=== PATIENT | male | born 1950 | race Caucasian/White ===

== ENCOUNTER 2022-11-19 14:48 | Inpatient (IN) | payer OTHER ==
--- NOTE | 2022-11-19 15:17 | RAD REPORT ---
EXAM DESCRIPTION: Rachel Single View11/19/2022 3:03 pm CLINICAL HISTORY: Alteration of consciousness COMPARISON: 2009 FINDINGS: The lungs appear clear of acute infiltrate. The heart is normal size IMPRESSION: No acute abnormalities displayed
[2022-11-19 15:33] LABS: Absolute Lymphocytes (CBC) 1.3 K/uL (0.7-4.9); Hematocrit 59.4 % (39.6-49.0); Lymphocytes % 9.7 % (15.3-44.8); MCV 92.7 fL (80-100); MPV 8.8 fL (7.6-11.3)
[2022-11-19 15:49] LABS: Albumin 3.5 g/dL (3.4-5.0); Bilirubin Direct 0.4 mg/dL (0-0.2); Bilirubin Total 0.9 mg/dL (0.2-1.0); Potassium 4.5 mmol/L (3.5-5.1); Protein, Total 7.8 g/dL (6.4-8.2)
[2022-11-19] MEDS ORDERED: CEFTRIAXONE 1000 MG/VIAL ONE (15:57)
[2022-11-19] MEDS ORDERED: NA CHLORIDE 0.9% 50 ML ONE ×2 (15:57→16:02)
[2022-11-19] MEDS ORDERED: NA CHLORIDE 0.9% 1,000 ML ONE ×2 (15:57→17:37)
[2022-11-19] MEDS ORDERED: NA CHLORIDE 0.9% 250 ML ONE (15:57)
[2022-11-19] MEDS ORDERED: VANCOMYCIN 1 GM/VIAL ONE ×2 (15:57→16:02)
[2022-11-19 16:07] LABS: Protime INR 1.06
--- NOTE | 2022-11-19 16:17 | RAD REPORT ---
EXAM DESCRIPTION: CT - Head C Spine Cap Wo Con - 11/19/2022 3:47 pm CLINICAL HISTORY: Head and neck injury with chest and abdominal pain status post fall TECHNIQUE: Computed axial tomography of head, neck, chest, abdomen and pelvis obtained. IV and oral contrast not requested. Coronal and sagittal reconstruction performed. All CT scans are performed using dose optimization technique as appropriate and may include automated exposure control or mA/KV adjustment according to patient size. COMPARISON: 2016 FINDINGS: An intracranial bleed is not seen. A 6.5 centimeter infarct right occipital lobe The ventricles are normal in caliber. An extra-axial fluid collection is not noted. . Fluid within the sinuses/mastoids is not seen. A cervical fracture is not seen. No dislocation is noted. The evaluation of mediastinum, barbara, vessels, solid organs and bowel are limited secondary to the lac k of contrast administration. A mediastinal hematoma is not noted. A pleural effusion is not seen. A lung contusion is not present. The liver,spleen, pancreas, adrenals,kidneys and bladder do not demonstrate an acute traumatic injury Penny catheter within the bladder IMPRESSION: 6.5 centimeter acute infarct right occipital lobe No acute traumatic abnormality involving the chest/abdomen/pelvis.
[2022-11-19 16:45] LABS: Potassium 4.5 mmol/L (3.5-5.1)
[2022-11-19 16:46] LABS: Albumin 3.5 g/dL (3.4-5.0); Bilirubin Total 0.9 mg/dL (0.2-1.0); Protein, Total 7.8 g/dL (6.4-8.2)
[2022-11-19 17:26] LABS: SARS-COV-2 RT PCR NEGATIVE (NEGATIVE)
[2022-11-19] MEDS ORDERED: INSULIN -REGULAR HUMAN 100 UNIT in NA CHLORIDE 0.9% 100 ML IV SCH (17:45)
--- NOTE | 2022-11-19 17:54 | ER ---
Nurse's Notes [facility] Name: Abelardo Campo Age: 72 yrs Sex: Male : 1950 Arrival Date: 11/19/2022 Time: 14:51 Bed 3 Private MD: Diagnosis: Altered mental status, right occipital lobe infarct, DKA, acute renal failure Presentation: 11/19 14:51 Chief complaint: EMS states: Family had not seen patient in 3 days, so called 911 for welfare check. Pt was found soiled with urine on the floor. No obvious sign of injury. Pt was able to tell EMS on scene his name, but has not said anything since then. Coronavirus screen: Client denies travel out of the [place] in the last 14 days. Ebola Screen: Patient denies exposure to infectious person. Patient denies travel to an Ebola-affected area in the 21 days before illness onset. Initial Sepsis Screen: Does the patient meet any 2 criteria? Altered Mental Status. Does the patient have a suspected source of infection? No. Patient's initial sepsis screen is negative. Risk Assessment: Do you want to hurt yourself or someone else? Patient reports no desire to harm self or others. Onset of symptoms is unknown. Care prior to arrival: IV initiated. 20 GA, in the right antecubital area, Glucose check: 425. 14:51 Method Of Arrival: EMS: [facility] 14:51 Acuity: SIMRAN 2 ss Historical: - Allergies: 14:55 Unable to obtain; ss - Home Meds: 14:55 Unable to obtain [Active]; ss - PMHx: 14:55 CAD; carrotid blockage; Diabetes - IDDM; High Cholesterol; Hypertension; Myocardial ss infarction; - PSHx: 14:55 Unable to Obtain; ss - Immunization history:: Adult Immunizations unknown. - Social history:: Smoking status: unknown. Screenin:45 [facility] ED Fall Risk Assessment (Adult) History of falling in the last 3 months, ph including since admission Yes- single mechanical fall (1 pt) Confusion or Disorientation Yes (5 pts) Intoxicated or Sedated No (0 pts) Impaired Gait Yes (1 pt) Mobility Assist Device Used No (0 pt) Altered Elimination No (0 pt) Score/Fall Risk Level 3 or more points = High Risk Oriented to surroundings, Maintained a safe environment, Hourly rounding (assess needs \T\ fall precautionary measures) done, Activated bed/chair alarm. Abuse screen: Denies threats or abuse. Denies injuries from another. Nutritional screening: No deficits noted. Tuberculosis screening: No symptoms or risk factors identified. 17:30 Patient has been NPO before screening. The patient is not alert, or is unable to follow ph commands. Bedside swallow screening discontinued. Patient kept NPO until cleared by Speech Therapy or Physician. pt aphasic The patient is exhibiting difficulty speaking. Provider notified of indication for Speech Therapy consult. The patient does not exhibit difficulty understanding words. The patient is able to swallow own secretions with no drooling or need for suction. The patient failed the bedside swallow screening. The patient will be kept NPO until cleared by Speech Therapy or Physician. Provider notified of bedside swallow screening results: Jacob Madrigal MD. Assessment: 15:15 Reassessment: code sepsis called overhead. ss 15:16 Reassessment: Brother in law at bedside. States unknown downtime for patient. ss 15:30 General: Appears in no apparent distress. Behavior is listless, quiet. Pain: Unable to ph use pain scale. Patient is disoriented. Neuro: Level of Consciousness is awake, confused, Oriented to person, Speech absent. Pupils are PERRLA. Cardiovascular: Capillary refill is sluggish in bilateral fingers. Respiratory: Airway is patent Respiratory effort is even, unlabored. GI: No signs and/or symptoms were reported involving the gastrointestinal system. Derm: Skin is pink, warm \T\ dry. 17:30 Reassessment: Patient appears in no apparent distress at this time. Patient and/or ph family updated on plan of care and expected duration. Pain level reassessed. Pt resting w/ eyes closed, will occasionally open both eyes wide, attempt to sit up and look around but remains confused, appears to recognize family at bedside but is not speaking. 18:30 Reassessment: Patient appears in no apparent distress at this time. Patient and/or ph family updated on plan of care and expected duration. Pain level reassessed. Pt resting quietly w/ eyes closed, VSS. 20:06 General: current FS 293. maintain current insulin rate per protocol. lg3 20:32 General: Appears in no apparent distress. unkempt, Behavior is listless, quiet. Pain: lg3 Unable to use pain scale. Patient is disoriented. Neuro: Level of Consciousness is listless. Cardiovascular:. Respiratory: Airway is patent Trachea midline Respiratory effort is even, unlabored, Respiratory pattern is regular, symmetrical. GI: No deficits noted. Abdomen is flat, non-distended. : No deficits noted. criticore horn in place. EENT: No deficits noted. Derm: Skin is intact, Skin is dry, Skin is normal. Musculoskeletal:. 21:18 General: current FS 261. maintain current insulin rate per protocol . lg3 22:02 General: current FS 177. decrease insulin to 1/2 of current rate per protocol. rate lg3 lowered to 2.5mg/hr. Vital Signs: 14:51 BP 136 / 86; Pulse 88; Resp 18; Temp 94(A); Pulse Ox 94% on R/A; ss 15:24 Temp 94.5(C); ss 15:46 Weight 81.65 kg; ph 16:00 BP 134 / 86; Pulse 89; Resp 18; Pulse Ox 98% on R/A; ph 17:28 BP 164 / 76; Pulse 82; Resp 18; Temp 96.4(C); Pulse Ox 100% on R/A; ph 18:20 BP 171 / 75; Pulse 81; Resp 18; Temp 96.5(C); Pulse Ox 100% on R/A; ph 20:32 BP 125 / 72; Pulse 86; Resp 20; Temp 98.3(C); Pulse Ox 100% on R/A; lg3 NIH Stroke Scale Scores: 16:30 NIHSS Score: 13 ph ED Course: 14:51 Patient arrived in ED. ss 14:51 Jacob Madrigal MD is Attending Physician. kdr 14:53 Munira Kathleen, [place] is Primary Nurse. eh3 14:55 Triage completed. ss 14:55 Arm band placed on right wrist. ss 15:08 XRAY Chest (1 view) In Process Unspecified. EDMS 15:16 Horn cath inserted, using sterile technique, 16 Fr., by worship leader, balloon inflated, to ss gravity drainage, other Criticore horn. 15:45 Patient has correct armband on for positive identification. Placed in gown. Bed in low ph position. Call light in reach. Side rails up X2. Client placed on continuous cardiac and pulse oximetry monitoring. NIBP monitoring applied. 15:49 CT Traumagram (Head C Spine CAP wo con) In Process Unspecified. EDMS 16:00 Maintain EMS IV. Dressing intact. Good blood return noted. Site clean \T\ dry. Gauge \T\ ph site: 20 RAC. 16:19 EKG done, by ED staff, reviewed by Jacob Madrigal MD. em1 16:25 Inserted saline lock: 22 gauge in left antecubital area, using aseptic technique. Blood ph collected. 17:52 Maicol Bonilla MD is Hospitalizing Provider. kdr 18:06 No provider procedures requiring assistance completed. Patient admitted, IV remains in ph place. 19:32 Lactate w/ 2H reflex if indic. Sent. ph 20:32 Client placed on continuous cardiac and pulse oximetry monitoring. NIBP monitoring lg3 applied. telemetry monitor on. Administered Medications: 16:35 Drug: NS 0.9% (30 ml/kg) 30 ml/kg Route: IV; Rate: bolus; Site: left antecubital; ph 18:20 Follow up: Response: No adverse reaction; IV Status: Completed infusion; IV Intake: ph 2000ml 16:35 Drug: Rocephin - (cefTRIAXone) 1 grams Route: IVPB; Infused Over: 30 mins; Site: left ph antecubital; 17:00 Follow up: Response: No adverse reaction; IV Status: Completed infusion ph 16:57 Drug: vancoMYCIN 1 grams Route: IVPB; Infused Over: 2 hrs; Site: left antecubital; ph 18:57 Follow up: Response: No adverse reaction; IV Status: Completed infusion ph 18:00 Drug: Insulin Regular Human 10 units {Co-Signature: ss (Josette Obregon RN).} Route: IVP; ph Site: left antecubital; 18:57 Follow up: Response: No adverse reaction; Blood sugar is lowered ph 18:50 Drug: Insulin Drip - (Insulin Regular Human 100 units, NS 0.9% 100 ml) {Co-Signature: ph ss (Josette Obregon RN).} {Note: initiated at 5 units/hr.} Route: IV; Rate: calculated rate; Site: right antecubital; 18:51 Drug: NS 0.45 % 1000 ml Route: IV; Rate: 100 ml/hr; Site: left antecubital; ph 18:58 Follow up: IV Status: Infusion continued upon admission ph 21:39 Follow up: IV Status: Infusion continued upon admission lg3 20:21 Drug: Aspirin Suppository 300 mg Route: IA; lg3 21:39 Follow up: Response: No adverse reaction lg3 Medication: 15:45 VIS not applicable for this client. ph Intake: 18:20 IV: 2000ml; Total: 2000ml. ph Outcome: 17:54 Decision to Hospitalize by Provider. kdr 11/20 01:56 Admitted to ICU accompanied by nurse, via stretcher, room 6, on monitor, with chart. lg3 Condition: stable 01:57 Patient left the ED. lg3 NIH Stroke Scale - NIH Stroke Score Date: 11/19/2022 Time: 16:30 Total Score = 13 1a. Level of Consciousness (LOC) - 1(Not Alert) 1b. Level of Consciousness (LOC) (Month \T\ Age) - 2(Neither) 1c. LOC Commands (Open \T\ Closes Eyes/Maintenance Service Technician) - 0(Both) 2. Best Gaze (Lateral Gaze Paresis) - 0(Normal) 3. Visual Field Loss - 0(No visual loss) 4. Facial Palsy - 1(Minor Paralysis) 5a. Left Arm: Motor (10-second hold) - 2(Drift, some effort against gravity) 5b. Right Arm: Motor (10-second hold) - 0(No drift) 6a. Left Leg: Motor (5-second hold - always test supine) - 2(Drift, some effort against gravity) 6b. Right Leg: Motor (5-second hold - always test supine) - 0(No drift) 7. Limb Ataxia (finger/nose \T\ heel/monroe - test with eyes open) - 1(Present in one limb) 8. Sensory Loss (pinprick arms/legs/face) - 0(Normal) 9. Best Language: Aphasia (description/naming/reading) - 2(Severe aphasia) 10. Dysarthria (speech clarity - read or repeat words) - 2(Severe) 11. Extinction and Inattention (visual/tactile/auditory/spatial/personal) - 0(No abnormality) Initials: ph Signatures: Dispatcher [employer] EDMS Jacob Madrigal MD MD kdr Martinez, Eric em1 Josette Obregon RN RN Sherri Kathleen RN RN ph Beryl Workman, RN RN lg3 Munira Kathleen RN RN 3 Josette Obregon RN ss Corrections: (The following items were deleted from the chart) 11/19 22: 22:02 General: current FS 177. decrease insulin to 1/2 of current rate per lg3 protocol. rate lowered to 2.5mg/dl. lg3 22:04 General: lg3 lg3
--- NOTE | 2022-11-19 17:54 | EDPHYS ---
Physician Documentation [facility] Name: Abelardo Campo Age: 72 yrs Sex: Male : 1950 Arrival Date: 11/19/2022 Time: 14:51 Bed 3 Private MD: ED Physician Jacob Madrigal HPI: 11/19 17:54 This 72 yrs old Male presents to ER via EMS with complaints of Altered Mental Status. kdr 17:54 Patient was found down at his home. Patient lives by himself. Patient had not been seen kdr for about 3 days. Family states that he is normally a loner. The [id number] who was with EMS and police when they entered the home, noted that he appeared to be in bodily fluids from being on the ground for period of time. The [id number] stated that it seemed that he had collapsed and swiped things that were on the counter onto the floor as he went to the ground. On arrival the patient was noted to be hypothermic and with prompting would open his eyes and verbally recognize his [id number] and state his name. It does seem to take a lot of effort for him to interact. He is moving his upper extremities well. Patient does appear acutely ill and toxic.. Onset: The symptoms/episode began/occurred 3 day(s) ago, at an unknown time. At some time over the last 3 days. Severity of symptoms: At their worst the symptoms were incapacitating in the emergency department the symptoms are unchanged. The patient has not experienced similar symptoms in the past. It is unknown whether or not the patient has recently seen a physician. Historical: - Allergies: 14:55 Unable to obtain; ss - Home Meds: 14:55 Unable to obtain [Active]; ss - PMHx: 14:55 CAD; carrotid blockage; Diabetes - IDDM; High Cholesterol; Hypertension; Myocardial ss infarction; - PSHx: 14:55 Unable to Obtain; ss - Immunization history:: Adult Immunizations unknown. - Social history:: Smoking status: unknown. ROS: 17:54 Constitutional: Unable to obtain secondary to the patient's diminished mental status kdr 17:54 Unable to obtain ROS due to obtunded state. Exam: 17:54 Constitutional: This is a well developed, reasonably nourished patient who is obtunded kdr but responsive to verbal stimuli Head/Face: Normocephalic, atraumatic. Eyes: Pupils equal round and reactive to light, extra-ocular motions intact. Lids and lashes normal. Conjunctiva and sclera are non-icteric and not injected. Cornea within normal limits. Periorbital areas with no swelling, redness, or edema. Patient does appear to have sunken eyes Neck: Trachea midline, no thyromegaly or masses palpated, and no cervical lymphadenopathy. Supple, full range of motion without nuchal rigidity, or vertebral point tenderness. No Meningismus. Chest/axilla: Normal chest wall appearance and motion. Nontender with no deformity. No lesions are appreciated. Cardiovascular: Regular rate and rhythm with a normal S1 and S2. No gallops, murmurs, or rubs. Normal PMI, no JVD. No pulse deficits. Respiratory: Lungs have equal breath sounds bilaterally, clear to auscultation and percussion. No rales, rhonchi or wheezes noted. No increased work of breathing, no retractions or nasal flaring. Abdomen/GI: Soft, non-tender, with normal bowel sounds. No distension or tympany. No guarding or rebound. No evidence of tenderness throughout. Back: No spinal tenderness. No costovertebral tenderness. Full range of motion. Skin: Warm, dry with normal turgor. Normal color with no rashes, no lesions, and no evidence of cellulitis. MS/ Extremity: Pulses equal, no cyanosis. Neurovascular intact. Full, normal range of motion. 17:54 Neuro: Orientation: unable to test, Obtunded. Vital Signs: 14:51 BP 136 / 86; Pulse 88; Resp 18; Temp 94(A); Pulse Ox 94% on R/A; ss 15:24 Temp 94.5(C); ss 15:46 Weight 81.65 kg; ph 16:00 BP 134 / 86; Pulse 89; Resp 18; Pulse Ox 98% on R/A; ph 17:28 BP 164 / 76; Pulse 82; Resp 18; Temp 96.4(C); Pulse Ox 100% on R/A; ph 18:20 BP 171 / 75; Pulse 81; Resp 18; Temp 96.5(C); Pulse Ox 100% on R/A; ph 20:32 BP 125 / 72; Pulse 86; Resp 20; Temp 98.3(C); Pulse Ox 100% on R/A; lg3 NIH Stroke Scale Scores: 16:30 NIHSS Score: 13 ph MDM: 17:54 Patient medically screened. kdr 17:54 Data reviewed: vital signs, nurses notes, lab test result(s), radiologic studies. kdr Consideration of Admission/Observation Patient was admitted/placed on observation. Escalation of care including admission/observation considered. Management of patient was discussed with the following: Hospitalist: Chad. Multiple Drum Sander Helper: Sangeeta. I considered the following discharge prescriptions or medication management in the emergency department Medications were administered in the Emergency Department. See DEC. 11/19 14:52 Order name: Basic Metabolic Panel; Complete Time: 17:16 kdr 11/19 14:52 Order name: CBC with Diff; Complete Time: 17:16 kdr 11/19 14:52 Order name: LFT's; Complete Time: 17:16 kdr 11/19 14:52 Order name: NT PRO-BNP; Complete Time: 17:16 kdr 11/19 14:52 Order name: Troponin HS; Complete Time: 17:16 kdr 11/19 14:52 Order name: CPK; Complete Time: 17:16 kdr 11/19 15:15 Order name: Blood Culture Adult (2) kdr 11/19 15:15 Order name: CMP; Complete Time: 17:16 kdr 11/19 15:15 Order name: Lactate w/ 2H reflex if indic.; Complete Time: 17:16 kdr 11/19 15:15 Order name: Protime (+inr); Complete Time: 17:16 kdr 11/19 15:15 Order name: Ptt, Activated; Complete Time: 17:16 kdr 11/19 15:37 Order name: COVID-19/FLU A+B; Complete Time: 17:37 em1 11/19 17:44 Order name: Urine Microscopic Only; Complete Time: 23:06 la1 11/19 18:54 Order name: Glucose, Ancillary Testing; Complete Time: 21:37 EDMS 11/19 18:56 Order name: Lactate w/ 2H reflex if indic. bd 11/19 20:17 Order name: Glucose, Ancillary Testing; Complete Time: 21:37 EDMS 11/19 20:22 Order name: Lactate w/ 2H reflex if indic.; Complete Time: 21:37 EDMS 11/19 21:29 Order name: Glucose, Ancillary Testing; Complete Time: 21:37 EDMS 11/19 21:39 Order name: ABG la1 11/19 21:39 Order name: Uric Acid la1 11/19 21:59 Order name: ABG Arterial Blood Gas; Complete Time: 23:06 EDMS 11/19 22:13 Order name: Glucose, Ancillary Testing; Complete Time: 23:06 EDMS 11/19 22:17 Order name: Urine Dipstick-Ancillary; Complete Time: 23:06 EDMS 11/19 23:05 Order name: Glucose, Ancillary Testing; Complete Time: 23:06 EDMS 11/19 23:07 Order name: Basic Metabolic Panel EDMS 11/19 23:07 Order name: Troponin High Sensitivity EDMS 11/19 23:17 Order name: Uric Acid EDMS 11/20 00:14 Order name: Glucose, Ancillary Testing EDMS 11/20 01:02 Order name: Urine Dipstick-Ancillary EDMS 11/20 01:10 Order name: Glucose, Ancillary Testing EDMS 11/19 14:52 Order name: XRAY Chest (1 view); Complete Time: 17:16 kdr 11/19 14:52 Order name: EKG; Complete Time: 14:53 kdr 11/19 14:52 Order name: Cardiac monitoring; Complete Time: 15:10 kdr 11/19 14:52 Order name: EKG - Nurse/Tech; Complete Time: 16:19 kdr 11/19 14:52 Order name: IV Saline Lock; Complete Time: 15:10 kdr 11/19 14:52 Order name: Labs collected and sent; Complete Time: 15:10 kdr 11/19 14:52 Order name: O2 Per Protocol; Complete Time: 15:10 kdr 11/19 14:52 Order name: O2 Sat Monitoring; Complete Time: 15:10 kdr 11/19 14:52 Order name: Urine Dipstick-Ancillary (obtain specimen); Complete Time: 15:10 kdr 11/19 14:57 Order name: Penny; Complete Time: 15:10 ss 11/19 15:15 Order name: Accucheck; Complete Time: 15:45 kdr 11/19 15:15 Order name: IV Saline Lock - Large Bore; Complete Time: 15:45 kdr 11/19 15:15 Order name: Vital Signs; Complete Time: 15:23 kdr 11/19 15:16 Order name: Misc. Order: Sumanth cortesgger to patient per protocol ; Complete Time: 15:46 kdr 11/19 15:32 Order name: CT Traumagram (Head C Spine CAP wo con); Complete Time: 17:16 kdr Administered Medications: 16:35 Drug: NS 0.9% (30 ml/kg) 30 ml/kg Route: IV; Rate: bolus; Site: left antecubital; ph 18:20 Follow up: Response: No adverse reaction; IV Status: Completed infusion; IV Intake: ph 2000ml 16:35 Drug: Rocephin - (cefTRIAXone) 1 grams Route: IVPB; Infused Over: 30 mins; Site: left ph antecubital; 17:00 Follow up: Response: No adverse reaction; IV Status: Completed infusion ph 16:57 Drug: vancoMYCIN 1 grams Route: IVPB; Infused Over: 2 hrs; Site: left antecubital; ph 18:57 Follow up: Response: No adverse reaction; IV Status: Completed infusion ph 18:00 Drug: Insulin Regular Human 10 units {Co-Signature: ss (Josette Obregon RN).} Route: IVP; ph Site: left antecubital; 18:57 Follow up: Response: No adverse reaction; Blood sugar is lowered ph 18:50 Drug: Insulin Drip - (Insulin Regular Human 100 units, NS 0.9% 100 ml) {Co-Signature: ph ss (Josette Obregon RN).} {Note: initiated at 5 units/hr.} Route: IV; Rate: calculated rate; Site: right antecubital; 18:51 Drug: NS 0.45 % 1000 ml Route: IV; Rate: 100 ml/hr; Site: left antecubital; ph 18:58 Follow up: IV Status: Infusion continued upon admission ph 21:39 Follow up: IV Status: Infusion continued upon admission lg3 20:21 Drug: Aspirin Suppository 300 mg Route: AK; lg3 21:39 Follow up: Response: No adverse reaction lg3 Disposition Summary: 11/19/22 17:54 Hospitalization Ordered Hospitalization Status: Inpatient Admission kdr Provider: Maicol Bonilla Condition: Fair kdr Problem: new kdr Symptoms: are unchanged kdr Bed/Room Type: Standard kdr Location: Intensive Care Unit(11/20/22 00:26) eb1 Room Assignment: 6-(11/20/22 00:26) eb1 Diagnosis - Altered mental status, right occipital lobe infarct, DKA, acute renal failure kdr Forms: - Medication Reconciliation Form kdr - SBAR form kdr NIH Stroke Scale - NIH Stroke Score Date: 11/19/2022 Time: 16:30 Total Score = 13 1a. Level of Consciousness (LOC) - 1(Not Alert) 1b. Level of Consciousness (LOC) (Month \T\ Age) - 2(Neither) 1c. LOC Commands (Open \T\ Closes Eyes/Cassandra Consultant) - 0(Both) 2. Best Gaze (Lateral Gaze Paresis) - 0(Normal) 3. Visual Field Loss - 0(No visual loss) 4. Facial Palsy - 1(Minor Paralysis) 5a. Left Arm: Motor (10-second hold) - 2(Drift, some effort against gravity) 5b. Right Arm: Motor (10-second hold) - 0(No drift) 6a. Left Leg: Motor (5-second hold - always test supine) - 2(Drift, some effort against gravity) 6b. Right Leg: Motor (5-second hold - always test supine) - 0(No drift) 7. Limb Ataxia (finger/nose \T\ heel/monroe - test with eyes open) - 1(Present in one limb) 8. Sensory Loss (pinprick arms/legs/face) - 0(Normal) 9. Best Language: Aphasia (description/naming/reading) - 2(Severe aphasia) 10. Dysarthria (speech clarity - read or repeat words) - 2(Severe) 11. Extinction and Inattention (visual/tactile/auditory/spatial/personal) - 0(No abnormality) Initials: ph Signatures: Dispatcher [employer] EDAL Jacob Madrigal MD MD kdr Smirch, Shelby, [place] RN ss Nish Bailey, OCEAN FREIGHT MANAGER-C OCEAN FREIGHT MANAGER-Cla1 Sherri Kathleen RN RN Carlita Rodríguez RN RN 1 Beryl Workman RN RN lg3 Josette Obregon RN ss Corrections: (The following items were deleted from the chart) 19:47 17:54 Intensive Care Unit kdr eb1 19:47 17:54 kdr eb1 11/20 00:26 11/19 19:47 [facility] ER HOLD eb1 eb1 02/02 00:26 02/01 19:47 ERHOLD- eb1 eb1
[2022-11-19] MEDS ORDERED: INSULIN -REGULAR HUMAN 50 UNIT/0.5 ML ML ONE (18:19)
[2022-11-19] MEDS ORDERED: NACHLORIDE 0.45% 1,000 ML IV ONE ×2 (18:20→21:39)
--- NOTE | 2022-11-19 18:26 | P.HP ---
Certification for Inpatient Patient admitted to: Inpatient With expected LOS: >2 Midnights Patient will require the following post-hospital care: None Practitioner: I am a practitioner with admitting privileges, knowledge of patient current condition, hospital course, and medical plan of care. Services: Services provided to patient in accordance with Admission requirements found in Title 42 Section 412.3 of the Code of Federal Regulations <Nish Bailey - Last Filed: 11/19/22 18:15> Patient History Date of Service: 11/19/22 Reason for admission: CVA, DKA, ARF History of Present Illness: 72-year-old male with history of CAD, insulin-dependent diabetes, hypertension, hyperlipidemia presented to the emergency department after he was found on the floor of his home with altered mental status, he was last seen 3 days ago by his family. Patient was noted to be incontinent of urine at that time. He was evaluated here in the emergency department his labs were significant for demonstration of acute renal failure, DKA, hyperglycemia, mild leukocytosis. CT head C-spine chest abdomen pelvis without contrast was performed which revealed 6.5 cm acute infarct in the right occipital lobe with no additional acute findings noted. Chest x-ray negative for acute findings. Patient was also noted to be hypothermic with initial temperature of 94.0, he was placed on a Myrna hugger his temperature has improved to 96.4 currently. His vital signs have been otherwise stable SIRS criteria present including hypothermia, naz kocytosis although no source of infection has been identified, also present with mild lactic acidosis, lactic acid was 3.4. Patient was given broad-spectrum antibiotics with vancomycin, Rocephin as well as 30 cc/kg IV fluid bolus in ED. Will admit for further evaluation and management of acute ischemic CVA, acute renal failure, DKA. - Past Medical/Surgical History -: Insulin-dependent diabetes -: CAD -: Hypertension -: Hyperlipidemia Past Surgical History: Unable to obtain Psychosocial/ Personal History: Per report of family, patient lives at home alone and is independent. - Family History Father History Unknown: Yes - Social History Smoking Status: Unknown if ever smoked Place of Residence: Home <Nish Bailey - Last Filed: 11/19/22 18:15> Date of Service: 11/20/22 <Maicol Bonilla - Last Filed: 11/20/22 10:42> Allergies No Known Allergies Allergy (Uncoded 11/20/22 02:44) Unknown Review of Systems is unable to be obtained <Nish Bailey - Last Filed: 11/19/22 18:15> Physical Examination - Physical Exam General: Confused, Other (Obtunded) HEENT: Atraumatic, PERRLA, Mucous membr. moist/pink, EOMI, Sclerae nonicteric Neck: Supple, 2+ carotid pulse no bruit, No LAD, Without JVD or thyroid abnormality Respiratory: Clear to auscultation bilaterally, Normal air movement Cardiovascular: No edema, Regular rate/rhythm, Normal S1 S2 Capillary refill: <2 Seconds Gastrointestinal: Normal bowel sounds, No tenderness Musculoskeletal: No tenderness Integumentary: No rashes Neurological: Other (Patient obtunded, follows simple one-step commands, moves all extremities, maintaining airway. Nonverbal since presentation to ED.), Abnormal strength - Studies Laboratory Data (last 24 hrs) 11/19/22 15:40: PT 11.7, INR 1.06, APTT 29.6 11/19/22 15:40: Sodium 147 H, Potassium 4.5, BUN 155 H, Creatinine 4.73 H, Glucose 559 H*, Total Bilirubin 0.9, AST 22, ALT 36, Alkaline Phosphatase 102 11/19/22 15:07: WBC 13.60 H, Hgb 19.2 H, Hct 59.4 H, Plt Count 291 11/19/22 15:07: Sodium 147 H, Potassium 4.5, BUN 155 H, Creatinine 4.69 H, Glucose 577 H*, Total Bilirubin 0.9, AST 23, ALT 38, Alkaline Phosphatase 98 <Nish Bailey - Last Filed: 11/19/22 18:15> - Studies Laboratory Data (last 24 hrs) 11/19/22 15:40: PT 11.7, INR 1.06, APTT 29.6 11/19/22 15:40: Sodium 147 H, Potassium 4.5, BUN 155 H, Creatinine 4.73 H, Glucose 559 H*, Total Bilirubin 0.9, AST 22, ALT 36, Alkaline Phosphatase 102 11/19/22 15:07: WBC 13.60 H, Hgb 19.2 H, Hct 59.4 H, Plt Count 291 11/19/22 15:07: Sodium 147 H, Potassium 4.5, BUN 155 H, Creatinine 4.69 H, Glucose 577 H*, Total Bilirubin 0.9, AST 23, ALT 38, Alkaline Phosphatase 98 <Maicol Bonilla - Last Filed: 11/20/22 10:42> Assessment and Plan - Plan Assessment: Acute 6.5 cm ischemic infarct right occipital lobe Acute metabolic encephalopathy Diabetes mellitus type 2insulin-dependent with ketoacidosis Acute renal failure SIRS criteria Hypothermia Hypertension Hyperlipidemia CAD Plan: Acute 6.5 cm ischemic infarct right occipital lobe: NIH Around 14, difficult to score given AMS/level of mentation currently last known well 3 days ago, the window for TNK or intervention currently. ED provider discussed case with neurology who recommends aspirin, Plavix, stroke evaluation. MRI, echocardiogram, PT/OT/speech therapy consults in place, n.p.o. currently as he failed swallow screen. Given CA aspirin in ED. Lipid panel, TSH, carotid Doppler also ordered. Neurology consult in place, every 4 hour neurochecks. Acute metabolic encephalopathy: Secondary to CVA, DKA. Continue treatment for underlying cause, additional evaluations ordered. Diabetes mellitus type 2insulin-dependent with ketoacidosis: Family reports patient is an insulin-dependent diabetic, last seen 3 days ago currently in DKA. Continue insulin drip, hourly Accu-Cheks, every 4 hours BMP until anion gap closed. A1c in the morning. Acute renal failure: Nephrology consult, renal ultrasound ordered. CPK obtained and normal. Continue IV fluids. SIRS criteria: Tachycardia present including hypothermia, leukocytosis also with mild lactic acidosis. No source infection identified or confirmed at this time, given broad-spectrum antibiotics vancomycin, Rocephin as well as 30 cc/kg IV fluid bolus. Repeat lactate level pending. Continue antibioticsRocephin at this time. Blood cultures were obtained. Hypothermia: Myrna hugger device in place, temperature improving. Hypertension: Hold oral antihypertensives at this time, allow for permissive hypertension. Hyperlipidemia: Lipid panel in the morning, continue statin. CAD: Trend troponins, monitor on telemetry, continue medications once verified and appropriate. DVT PPX: Heparin Code status: Full Discharge Plan: Other (Rehab) Plan to discharge in: Greater than 2 days - Advance Directives Does patient have a Living Will: No Does patient have a Durable POA for Healthcare: No - Code Status/Comfort Care Code Status Assessed: Yes (Full code) Critical Care: No Time Spent Managing Pts Care (In Minutes): 70 <Nish Bailey - Last Filed: 11/19/22 18:15> Physician Review: Patient Assessed, Agree with Above Assessment and Plan <Maicol Bonilla - Last Filed: 11/20/22 10:42>
[2022-11-19] MEDS ORDERED: ASPIRIN 300 MG/SUPP ONE (19:43)
[2022-11-19] MEDS: ATORVASTATIN 40 MG TAB PO SCH (21:29)
[2022-11-19] MEDS ORDERED: D5 0.45 NS 1,000 ML IV SCH ×2 (21:29→21:41)
[2022-11-19] MEDS ORDERED: ONDANSETRON 4 MG/2 ML VIAL IV PRN (21:29)
[2022-11-19] MEDS ORDERED: NACHLORIDE 0.45% 1,000 ML IV SCH (21:29)
[2022-11-19] MEDS: NACHLORIDE 0.45% 1,000 ML IV SCH (21:42)
[2022-11-19 21:54] LABS: Blood Gas Oxyhemoglobin 95.1 % (94-97); Blood O2 Saturation 97.4 % (92-98.5)
[2022-11-19] MEDS ORDERED: D5 0.45 NS 1,000 ML IV ONE (22:12)
[2022-11-19 22:17] LABS: Urine Blood 3+ (Negative); Urine Glucose 2+ (Negative); Urine Protein 2+ (Negative); Urine Specific Gravity >=1.030 (1.005-1.030)
[2022-11-19 22:28] LABS: Urine Bacteria <20 /HPF (<20); Urine Crystals Unidentified Few /HPF (None Seen); Urine Mucus Slight /HPF (None Seen); Urine RBC >50 /HPF (None Seen)
[2022-11-19 23:06] LABS: Potassium 3.9 mmol/L (3.5-5.1); Troponin High Sensitivity 23.3 pg/mL (<58.9)
[2022-11-19] MEDS ORDERED: D5W 1,000 ML IV ONE (23:18)
[2022-11-19] MEDS: D5W 1,000 ML IV SCH (23:19)
[2022-11-20 01:02] LABS: Urine Blood 3+ (Negative); Urine Glucose 1+ (Negative); Urine Protein 1+ (Negative)
[2022-11-20 01:55] LABS: Potassium 4.1 mmol/L (3.5-5.1); Troponin High Sensitivity 22.6 pg/mL (<58.9)
[2022-11-20] MEDS: NACHLORIDE 0.45% 1,000 ML IV SCH (04:22)
[2022-11-20] MEDS: D5W 1,000 ML IV SCH ×4 (06:09→22:45)
[2022-11-20 06:10] LABS: Phosphorus 4.2 mg/dL (2.5-4.9); Thyroid Stimulating Hormone 0.195 uIU/mL (0.358-3.740)
[2022-11-20 06:13] LABS: Magnesium 3.9 mg/dL (1.6-2.4)
--- NOTE | 2022-11-20 07:28 | RAD REPORT ---
EXAM DESCRIPTION: US - CP - 11/20/2022 5:31 am CLINICAL HISTORY: cva COMPARISON: Head C Spine Mpr Wo Con dated 03/02/2017; Head C Spine Cap Wo Con dated 11/19/2022 TECHNIQUE: Real-time sonographic evaluation of bilateral carotid and vertebral systems was performed . Crawley scale and Doppler interrogation were performed with waveform tracing bilaterally. FINDINGS: Echogenic material is seen filling the right common carotid artery with no identifiable bl ood flow. This occlusion pattern extends into the right carotid bulb. The right ICA is difficult to v isualize but appears to be fully thrombosed as well. Right vertebral artery was difficult to identify but blood flow was seen with a 37 cm/second peak velocity value. Plaquing changes are seen along the garcia of the left common carotid artery causing mild luminal narr owing. Peak velocity of the left common carotid artery was 69 cm/second. Blood flow is present in the left ICA with peak velocity 136 cm/second. Left ICA plaquing changes are present. Plaquing changes p robably do not cause hemodynamically significant degrees of stenosis. Left tubercle artery could not be clearly identified. Velocity values and ratios were recorded and are retained in the patient's imaging records. IMPRESSION: Occlusion of the right-sided carotid vasculature. Atherosclerotic changes seen in the left carotid vasculature. Findings do not appear to result in hem odynamically significant degree of stenosis. Normal velocity antegrade flow through the right vertebral artery. Left vertebral artery could not be clearly visualized.
--- NOTE | 2022-11-20 07:30 | RAD REPORT ---
EXAM DESCRIPTION: US - Renal Ultrasound-Complete - 11/20/2022 5:31 am CLINICAL HISTORY: arf COMPARISON: No comparisons FINDINGS: The right kidney measures grossly 9 x 5 cm. The left kidney measures grossly 7 x 4 cm. Re nal cortical thickness is normal range for both kidneys. There is an increase in cortical echogenicit y of both kidneys suggesting underlying medical renal disease. No hydronephrosis or suspicious renal mass. Bladder is contracted around a Penny catheter and cannot be further assessed. IMPRESSION: No hydronephrosis or suspicious renal mass. Increased cortical echogenicity of both kidneys consistent with underlying medical renal disease.
[2022-11-20 07:44] LABS: Absolute Lymphocytes (CBC) 1.8 K/uL (0.7-4.9); Hematocrit 53.6 % (39.6-49.0); Lymphocytes % 14.6 % (15.3-44.8); MCV 89.4 fL (80-100); MPV 8.6 fL (7.6-11.3)
[2022-11-20] MEDS: HEPARIN 5000 UNIT/ML 1 ML VIAL SQ SCH ×2 (08:42→20:26)
[2022-11-20] MEDS: FOLIC ACID 1 MG TABLET PO SCH (08:43)
[2022-11-20] MEDS: CLOPIDOGREL 75 MG TABLET PO SCH (08:43)
[2022-11-20] MEDS: CEFTRIAXONE 1,000 MG in NA CHLORIDE 0.9% 50 ML IVPB SCH (08:43)
[2022-11-20] MEDS: ASPIRIN EC 81 MG TAB PO SCH (08:43)
[2022-11-20 10:39] LABS: Potassium 3.8 mmol/L (3.5-5.1)
[2022-11-20] MEDS ORDERED: D50W 25 GM/50 ML SYRINGE IV PRN (10:47)
[2022-11-20] MEDS ORDERED: GLUCAGON 1 MG/VIAL IM PRN (10:47)
[2022-11-20] MEDS ORDERED: D5W 1,000 ML IV SCH (10:47)
--- NOTE | 2022-11-20 10:49 | P.PN ---
Subjective Date of Service: 11/20/22 Chief Complaint: CVA, DKA, ARF History is limited by what appears to be severe expressive aphasia. His baseline mental status is unknown, but he is following commands this morning. DKA and renal function appear to be gradually improving since admission. He remains on an insulin drip with D5W infusion due to his hypernatremia. Review of Systems is unable to be obtained Physical Examination - Vital Signs Temperature: 97.5 F Blood Pressure: 140/79 Pulse: 77 Respirations: 17 Pulse Ox (%): 97 - Physical Exam General: Alert, In no apparent distress HEENT: Atraumatic, Other (mucous membranes dry), EOMI, Sclerae nonicteric Neck: JVD not distended Respiratory: Clear to auscultation bilaterally, Normal air movement Cardiovascular: No edema, Regular rate/rhythm, Normal S1 S2, No gallops, No rubs, No murmurs Gastrointestinal: Normal bowel sounds, Soft and benign, Non-distended, No tenderness, No rebound, No guarding Musculoskeletal: No clubbing Integumentary: No rashes Neurological: Sensation intact, Other (significant expressive aphasia. follows commands), Abnormal strength (4/5 strength in RUE) - Studies Laboratory Data (last 24 hrs) 11/19/22 15:40: PT 11.7, INR 1.06, APTT 29.6 11/19/22 15:40: Sodium 147 H, Potassium 4.5, BUN 155 H, Creatinine 4.73 H, Glucose 559 H*, Total Bilirubin 0.9, AST 22, ALT 36, Alkaline Phosphatase 102 11/19/22 15:07: WBC 13.60 H, Hgb 19.2 H, Hct 59.4 H, Plt Count 291 11/19/22 15:07: Sodium 147 H, Potassium 4.5, BUN 155 H, Creatinine 4.69 H, Glucose 577 H*, Total Bilirubin 0.9, AST 23, ALT 38, Alkaline Phosphatase 98 Assessment And Plan - Plan NIH Stroke Scale 1a. Level of consciousness: 0 - Alert; keenly responsive 1b. LOC questions: 2 - 0 questions rights 1c. LOC commands: 0 - Performs both tasks 2. Best Gaze: 0 - Normal 3. Visual: 0 - No visual loss 4. Facial Palsy: 0 - Normal symmetry 5a. Motor left arm: 0 - No drift for 10 seconds 5b. Motor right arm: 0 - No drift for 10 seconds 6a. Motor left le - No drift for 5 seconds 6b. Motor right le - Drift, but doesn't hit bed 7. Limb ataxia: 0 - No ataxia 8. Sensory: 0 - Normal; no sensory loss 9. Best Language: 2 - Severe aphasia: fragmentary expression, inference needed 10. Dysarthria: 2 - Severe dysarthria: unintelligible slurring 11. Extinction and Inattention: 0 - No abnormality 12. Distal motor function: 0 - No abnormality Total Score: 7 # Acute Right Occipital Lobe Ischemic Cerebrovascular Accident # Acute Toxic Metabolic Encephalopathy secondary to CVA + DKA (improved) # Right Carotid Artery Occlusion # Coronary Artery Disease # Hypertension # Dyslipidemia - Consulted Neurology and spoke with Dr. Rutherford - recommendations appreciated - NIHSS = 7 - q4hr neurochecks - Chest x-ray = "no acute abnormalities displayed" - Ordered MR brain - CT head/cervical spine/chest/abdomen/pelvis = "6.5 centimeter acute infarct right occipital lobe. No acute traumatic abnormality involving the chest/abdomen/pelvis." - Head/Neck angiograms deferred given poor renal function - Carotid ultrasound = "Occlusion of the right-sided carotid vasculature. Atherosclerotic changes seen in the left carotid vasculature. Findings do not appear to result in hemodynamically significant degree of stenosis. Normal velocity antegrade flow through the right vertebral artery. Left vertebral artery could not be clearly visualized." - Ordered transthoracic echocardiogram - PT/OT/HVAC MAINTENANCE TECHNICIAN evaluation requested - Ordered risk profile: - Hgb A1c = 10.3 % - Lipid Panel = TC 331, LDL 244, HDL 44, TG 223 - TSH = 0.195, Free T4 = 0.86 - Continue aspirin, atorvastatin, clopidogrel, folic acid # Diabetic Ketoacidosis in Type II Diabetes Mellitus # Hypernatremia secondary to Severe Dehydration - Evaluation thus far: - Presenting POCT glucose = 577 - Presenting Potassium = 4.5 - ABG = pH 7.38, PCO2 = 31.2 - Bicarbonate = 19 AGAP = 16 Hgb A1c = 10.3 % - Management plan: - IV fluids and insulin drip per protocol - Anion Gap closed; however, severely hypernatremic and requiring continuous D5W - Once sodium corrects, transition off of IV insulin drip to SQ insulin # KDIGO Stage III Acute Kidney Injury # Microscopic Hematuria - Nephrology consulted and spoke with Dr. Andersen - recommendations appreciated - Creatinine = 4.73 -> 4.10 -> 3.89 -> 3.76 -> 3.40 (baseline creatinine unknown) - BUN = 155 -> 157 -> 145 -> 150 - Urinalysis = >50 RBCs, 2+ glucose, trace ketones, 3+ blood, 2+ protein - Renal ultrasound = "no hydronephrosis or suspicious renal mass. Increased cortical echogenicity of both kidneys consistent with underlying medical renal disease" - IV fluids as mentioned above - Monitor creatinine and urine output - Renally dose medications # SIRS Criteria (Hypothermia, Leukocytosis) with Lactic Acidosis suspect due to above # 1/4 Blood Cultures positive for Gram-Positive Cocci in Clusters - suspect Contaminant - Repeat blood cultures - Started empiric vancomycin + ceftriaxone Maicol Bonilla M.D.
[2022-11-20] MEDS ORDERED: D10W 125 ML IV PRN (10:59)
[2022-11-20 11:12] LABS: UR PROTEIN 35.7 mg/dL (<11.9); Urine Protein/Creatinine Ratio 0.33 ratio (<0.15)
[2022-11-20] MEDS: MUPIROCIN 2% OINT 22GM TUBE TOP SCH ×2 (11:39→20:28)
--- NOTE | 2022-11-20 11:46 | CON ---
Date of Consultation: 11/20/2022 Reason For Consultation: Elevated BUN and creatinine, hypernatremia, hypokalemia. History Of Present Illness: This is a pleasant 72-year-old gentleman with significant past medical h istory of diabetes since 1999, complicated with neuropathy, no mention of retinopathy, hypertension, hyperlipidemia, CAD, chronic kidney disease unknown baseline. [facility] The p [place] apparently was found down, last had been seen 3 days ago, found to have massive CVA 6.5 cm. T he patient brought to the hospital. Upon arrival to the hospital, found to have severe elevation in BUN and creatinine, hyperkalemia and acidosis and DKA. For that reason, we have been involved. Over the night, we started the patient on IV hydration. The patient nonoliguric, hyperkalemia has been r esolved, but hypernatremia did not improve. The patient had good urine output. The patient is still drowsy. Responds to verbal command, spontaneously opens eyes. The patient has still difficulty spe aking. All the information has been obtained from the record and from the patient by moving his eyes or nodding his head. Past Medical History: Includes; 1.Diabetes, insulin dependent. 2.CAD. 3.Hypertension. 4.Hyperlipidemia. 5.Chronic kidney disease. Past Surgical History: None obtainable. Family History: None obtainable. Allergies: NO KNOWN DRUG ALLERGIES. Home Medications: None obtainable. Review of Systems: None obtainable. Physical Examination: General: When I saw the patient; the patient lying in bed. Vital Signs: Blood pressure 140/79, pulse of 77, afebrile. Chest: Clear to auscultation. Heart: S1, S2. Systolic murmur. Abdomen: Soft, nontender. No organomegaly. Extremities: No edema. Neuro: Alert. Has difficulty speaking. Dysarthria. Did not see any focality. No vision impairmen t. Laboratory Data: Upon presentation; WBC 13.6, H and H 19.2/59.4, platelets 291. Sodium 147, potassi um 4.5, bicarb 19, chloride 112, BUN 155, creatinine 4.6, blood sugar 577, calcium 9. BNP 649. CK 1 58. TSH 0.1. Urinalysis; specific gravity 1.030, WBC more than 20, +2 protein. Current lab data; W BC 12.5, hemoglobin 18.2. Sodium 153, potassium 3.8, bicarb 23, BUN 139, creatinine 3.4, glucose 203 , calcium 8.5. ABG; pH 7.38, CO2 31, O2 103, base access -6. Urinalysis; specific gravity 1.020, ne gative for hematuria. Current Medications: The patient on include; 1.Ceftriaxone. 2.Aspirin. 3.Plavix. 4.Atorvastatin. 5.Folic acid. 6.Insulin drip. 7.D5 at 150 per hour. 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 This is the chronic kidney disease component. The acute kidney disease is second fide to nonsteroidal use/glucose diuresis/poor perfusion. No significant acidosis, nonoliguric. No o vert volume. I do not see the urgency to initiate dialysis right now. I am going to go ahead and ch sharon IV fluid. We will give the patient D5 at 1 L and we will increase D5 to 200 and we will follow up. If kidney function did not improve, the patient may need to initiate renal replacement therapy. We will follow up in the 24-48 hours and we will monitor. 2.Chronic kidney disease secondary to diabetes nephropathy, PARISH secondary to nonsteroidal use. Bogdan turia has been cleared. It was traumatic, proteinuric. I am going to go ahead and quantify the prot einuria. The patient had small size kidney with echogenic, obstructive uropathy has been ruled out, nonoliguric. I am going to go ahead and continue hydration. Hold all EVANS inhibitor or ARB for the t joyce being and I will send for PTH to evaluate for the chronicity of the disease and we will monitor t he patient. 3.Hypernatremia secondary to glucose diuresis, dehydration. The patient's total water deficit is 2 L and insensible loss and the patient's urine output. Total it has come to 3.5 to 4 L. I am going t o go ahead and bolus the patient with 1 L of D5 and we will increase the D5 to 200 per hour. We will give insulin 7 units to cover any rise in the blood sugar to avoid any glucose diuresis and we will continue on insulin drip and we will follow up. I am going to go ahead and send spontaneous urine so dium and potassium now and in 4 hours to evaluate the clearance of sodium for the patient and we will follow up. 4.Hypokalemia with the presence of acidosis and the patient has been on insulin. I am going to go a head and supplement. We will follow up lab. 5.Diabetes with diabetic ketoacidosis as by primary. 6.Acidosis high anion gap metabolic acidosis secondary to diabetic ketoacidosis and lactic secondary to poor perfusion. Continue insulin drip. We will follow up with primary. 7.Cerebrovascular accident as by Neurology. 8.Coronary artery disease as by primary. NICOLE/JAYMIE Voice ID: [id number] Report ID: [id number]
[2022-11-20] MEDS ORDERED: INSULIN -REGULAR HUMAN 50 UNIT/0.5 ML ML IV ONE (12:00)
[2022-11-20] MEDS ORDERED: POTASSIUM CL 40 MEQ in NA CHLORIDE 0.9% 500 ML IV SCH (12:00)
[2022-11-20] MEDS: VANCOMYCIN 1.5 GM in NA CHLORIDE 0.9% 500 ML IVPB SCH (13:15)
--- NOTE | 2022-11-20 14:46 | CON ---
Reason For Consultation: Stroke. History Of Present Illness: Mr. Campo is a 72-year-old, right-handed patient with coronary artery disease, insulin-dependent diabetes mellitus, hypertension, dyslipidemia who was found by his family on the floor, poorly responsive, and he was last known to be well about 3 days prior to that. He was incontinent of urine, and when he came to [facility], he was found to be in diabetic ketoacidosis with acute renal failure, hyperglycemia. His CT scan, which was a trauma series including head showed a 6.5 cm acute infarct in the right occipital lobe without additional acute findings and mild small-vessel disease changes. No evidence of infection in his lungs. The patient reported he was hypothermic to 94 which did improve some more to 96.4. He did have hypothermia with leukocytosis. His lactic acid was elevated and he was with sepsis. He was treated with vancomycin, Rocephin and managed for his acute renal failure and admitted to ICU. At the time of my evaluation, which is the hospital day 2, the patient is somewhat lethargic but eventually responded appropriately and did follow commands appropriately over the right upper and lower extremity which he did well. Past Medical History: Insulin-dependent diabetes mellitus, coronary artery disease, hypertension, dyslipidemia. Allergies: NO KNOWN DRUG ALLERGIES. Medications: Aspirin 81 mg daily, Lipitor 40 mg at bedtime, Rocephin daily, Plavix 75 mg daily, folic acid 1 mg daily, heparin 5000 units subcutaneously twice daily, Zofran 4 mg as needed every 6 hours, potassium 40 mEq which he received x1, and he does have vancomycin last 11/20/2022 around 12 noon, 1.5 g was pushed and is given every 36 hours. Family History: Noncontributory. Social History: The patient lives alone and lives normally independent. There is a family who can check on him. No alcohol, tobacco, or IV drug use. Review of Systems: At this point, not reliable. Physical Examination: Vital Signs: Blood pressure 140/79, pulse 77, respiratory rate 16, temperature 97.5, oxygen saturation 100% on room air. Weight 107 pounds. Height 6 feet. BMI 23.1. General: Mr. Campo is in ICU. He is in no apparent distress. He is not intubated. Does not have supplemental oxygen. He is breathing room air. Somewhat unkempt and some mild bruising in upper and lower extremities, but does appear regular. Abdomen: Soft. Extremities: Show no significant edema or cyanosis. Neurological: He is somewhat poorly responsive. He does respond to his name and eventually with repeated encouragement provided appropriate answers. Cranial nerves show no focal deficit except he has a left homonymous hemianopia. Face is symmetric with good excursions. Motor exam; he has in the upper and lower extremities 5/5 proximally and distally. Sensory exam; no significant deficits [id number]. Gait, he will be ambulated with the physical therapist. Laboratory Studies: White blood cell count 12.5, hemoglobin 18.2, platelets 259. INR 1.06. Arterial blood gas from the 1st, pH 7.38, PCO2 31.2, PO2 103, oxyhemoglobin 95.1. Chemistries do show elevated chloride 121 and elevated sodium 153. He has elevated creatinine of 3.4. His glucose was elevated up to 213, calcium 8.5, magnesium 3.9, phosphorus 4.2, triglycerides 223, cholesterol 331, LDL 244, HDL 42, cholesterol HDL ratio 7.88. TSH 0.195, free T4 0.86. He also shows trace esterase, red blood cells greater than 50, hyaline casts greater than 20, blood 3+, glucose 1 to 2+, random urine protein 35.7, random urine sodium is slightly low at 17. His vancomycin trough 8.5. COVID and influenza A and B tests are negative on and that is on the 1st. Mr. Campo is a 72-year-old patient admitted to rehabilitation unit with diabetic ketoacidosis, acute renal failure, and a large right occipital stroke measuring 6.5 cm. He has a left homonymous hemianopsia. He does not have focal motor, coordination or sensory deficits. He did have somewhat of a productive cough and should be ruled out for pneumonia, although he did have a chest CT scan on the first that did not show pneumonia, but vision should be would be important given the history of stroke. He did have a carotid artery ultrasound, which showed occlusion of right-sided carotid vasculature. There are arthrosclerotic changes in the left carotid vasculature. The left vertebral artery could not be clearly visualized. There was normal flow through the right vertebral artery. Assessment: Mr. Campo is a 72-year-old patient with a large right occipital stroke, left homonymous hemianopia, hypertension, dyslipidemia, diabetes mellitus, acute renal failure, altered mental status, likely encephalopathy due to multifactorial reasons. Plan: 1. Aspirin, Plavix, folic acid, statin. 2. He may require a modified barium swallow study. 3. He may benefit from inpatient speech therapy, physical and occupational therapy. 4. Consider prism lenses in 3-6 months. ED/JAYMIE Voice ID: [id number] Report ID: [id number] [facility]ITAL[facility]
[2022-11-20 16:22] VITALS: O2SAT 99
[2022-11-20 18:45] LABS: Potassium 4.5 mmol/L (3.5-5.1)
[2022-11-20] MEDS: ATORVASTATIN 40 MG TAB PO SCH (20:28)
[2022-11-21] MEDS: D5W 1,000 ML IV SCH ×2 (03:26→10:55)
[2022-11-21 05:26] VITALS: BMI 24.4
[2022-11-21 05:34] LABS: Absolute Lymphocytes (CBC) 2.1 K/uL (0.7-4.9); Hematocrit 49.3 % (39.6-49.0); Lymphocytes % 22.8 % (15.3-44.8); MCV 90.3 fL (80-100); MPV 8.6 fL (7.6-11.3); RBC Red Blood Cell Count 5.46 M/uL (4.33-5.43)
[2022-11-21 05:43] LABS: Albumin 2.6 g/dL (3.4-5.0); Magnesium 3.1 mg/dL (1.6-2.4); Phosphorus 2.5 mg/dL (2.5-4.9); Potassium 3.5 mmol/L (3.5-5.1); Thyroid Stimulating Hormone 0.484 uIU/mL (0.358-3.740); Uric Acid 12.5 mg/dL (3.5-7.2)
--- NOTE | 2022-11-21 06:50 | ECHO ---
HEIGHT: 6 ft 0 in WEIGHT: 180 lb 6.4 oz DATE OF STUDY: 11/20/[address]: Nish Bailey NP 2-DIMENSIONAL: YES M.MODE: YES DOPPLER: YES COLOR FLOW: YES TDS: PORTABLE: YES DEFINITY: BUBBLE STUDY: DIAGNOSIS: CEREBRAL VASCULAR ACCIDENT CARDIAC HISTORY: CATHERIZATION: NO SURGERY: NO PROSTHETIC VALVE: NO PACEMAKER: NO MEASUREMENTS (cm) DIASTOLIC (NORMALS) SYSTOLIC (NORMALS) IVSd 1.0 (0.6-1.2) LA Diam 1.6 (1.9-4.0) LVEF 40-45% LVIDd 2.5 (3.5-5.7) LVIDs 1.7 (2.0-3.5) %FS 33% LVPWd 1.0 (0.6-1.2) Ao Diam 2.6 (2.0-3.7) 2 DIMENSIONAL ASSESSMENT: RIGHT ATRIUM: NORMAL LEFT ATRIUM: NORMAL RIGHT VENTRICLE: NORMAL LEFT VENTRICLE: NORMAL TRICUSPID VALVE: MILD TRICUSPID REGURGITATION MITRAL VALVE: NORMAL PULMONIC VALVE: NORMAL AORTIC VALVE: NORMAL PERICARDIAL EFFUSION: NONE AORTIC ROOT: NORMAL LEFT VENTRICULAR WALL MOTION: MILD GLOBAL HYPOKINESIS DOPPLER/COLOR FLOW: SEE BELOW COMMENTS: 1. VERY POOR WINDOWS 2. OVERALL LEFT VENTRICULAR EJECTION FRACTION APPEARS MILDLY DEPRESSED 3. MILD TRICUSPID REGURGITATION TECHNOLOGIST: GRACE BLAKE
[2022-11-21] MEDS: ASPIRIN EC 81 MG TAB PO SCH (08:10)
[2022-11-21] MEDS: FOLIC ACID 1 MG TABLET PO SCH (08:10)
[2022-11-21] MEDS: CLOPIDOGREL 75 MG TABLET PO SCH (08:10)
[2022-11-21 08:31] LABS: Rheumatoid Factor NEG (NEG)
[2022-11-21] MEDS: HEPARIN 5000 UNIT/ML 1 ML VIAL SQ SCH ×2 (08:36→20:40)
[2022-11-21] MEDS: CEFTRIAXONE 1,000 MG in NA CHLORIDE 0.9% 50 ML IVPB SCH (08:37)
[2022-11-21] MEDS: MUPIROCIN 2% OINT 22GM TUBE TOP SCH ×2 (08:37→20:40)
[2022-11-21 10:25] LABS: Potassium 3.6 mmol/L (3.5-5.1)
[2022-11-21] MEDS: Ringers Lactate 1,000 ML IV SCH ×2 (12:17→20:41)
--- NOTE | 2022-11-21 12:31 | P.PN ---
Subjective Date of Service: 11/21/22 Chief Complaint: CVA, DKA, ARF Subjective: Other (remains bedbound) Physical Examination - Vital Signs Temperature: 97.7 F Blood Pressure: 122/57 Pulse: 59 Respirations: 17 Pulse Ox (%): 99 - Physical Exam General: Other (appears as his stated age) HEENT: Atraumatic, Normocephalic Neck: Supple Respiratory: Other (symmetric chest expansion) Cardiovascular: No rubs, No murmurs Gastrointestinal: Soft and benign, No guarding Musculoskeletal: No clubbing Integumentary: No warmth Neurological: Normal tone, Other (lethargic) Urinary: Penny catheter, Other (no bladder distention) External genitalia: Deferred Rectal: Deferred - Studies Microbiology Data (last 24 hrs): 11/19/22 15:40 Blood - Blood Blood Culture Gram Stain - Final Assessment And Plan - Plan # POOJA secondary to NSAID use and osmotic diuresis from hyperglycemia Serum creatinine improved/decreased to 2.0 Cont IV hydration Continue Penny, DC when he is more up in about # CKD 3 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 Start calcitriol 0.25 mcg by mouth daily. Follow-up 25-hydroxy vitamin D # AGMA Resolving Cont IV hydration & insulin # Acute CVA Per other servcies # CAD Per other services Physician Review: Patient Assessed, Agree with Above Assessment and Plan
--- NOTE | 2022-11-21 17:24 | RAD REPORT ---
EXAM DESCRIPTION: MRI - Brain Wo Cont - 11/21/2022 5:10 pm CLINICAL HISTORY: CVA COMPARISON: Head CT November 19, 2022 TECHNIQUE: Axial, sagittal, and coronal magnetic resonance images of the brain were obtained. FINDINGS: A 2 centimeter area of abnormal signal right occipital lobe consistent with an acute infar ct. It is without significant change in size from the prior exam. T1 weighted sequences demonstrate s everal curvilinear areas of increased signal compatible with hemorrhage. 2 x 0.5 centimeter area of abnormal signal left occipital lobe consistent with acute infarct. The ventricles are normal caliber. An extra-axial fluid collection is not noted. Fluid within the sinuses/mastoids is not seen IMPRESSION: 8 centimeter acute infarction the right occipital lobe. There is a small amount of hemor rhagic conversion. Small acute left occipital lobe infarct Patient's nurse Bradley notified at 5:20 p.m. November 21, 2022
--- NOTE | 2022-11-21 20:00 | P.PN ---
Subjective Date of Service: 11/21/22 Chief Complaint: CVA, DKA, ARF History is limited by what appears to be severe expressive aphasia. He is able to say his name and that he is in a hospital, but his speech is dysarthric. His sodium is improving, plan to transition off of insulin drip and obtain MRI brain today. Review of Systems is unable to be obtained Physical Examination - Vital Signs Temperature: 97.8 F Blood Pressure: 143/51 Pulse: 63 Respirations: 19 Pulse Ox (%): 100 - Studies Microbiology Data (last 24 hrs): 11/19/22 15:40 Blood - Blood Blood Culture Gram Stain - Final Assessment And Plan - Plan NIH Stroke Scale 1a. Level of consciousness: 0 - Alert; keenly responsive 1b. LOC questions: 2 - 0 questions rights 1c. LOC commands: 0 - Performs both tasks 2. Best Gaze: 0 - Normal 3. Visual: 2 - Complete left hemianopia 4. Facial Palsy: 0 - Normal symmetry 5a. Motor left arm: 0 - No drift for 10 seconds 5b. Motor right arm: 0 - No drift for 10 seconds 6a. Motor left le - No drift for 5 seconds 6b. Motor right le - No drift for 5 seconds 7. Limb ataxia: 0 - No ataxia 8. Sensory: 0 - Normal; no sensory loss 9. Best Language: 2 - Severe aphasia: fragmentary expression, inference needed 10. Dysarthria: 2 - Severe dysarthria: unintelligible slurring 11. Extinction and Inattention: 0 - No abnormality 12. Distal motor function: 0 - No abnormality Total Score: 8 # Acute Right Occipital Lobe Ischemic Cerebrovascular Accident # Acute Toxic Metabolic Encephalopathy secondary to CVA + DKA (improved) # Right Carotid Artery Occlusion # Coronary Artery Disease # Hypertension # Dyslipidemia - Consulted Neurology and spoke with Dr. Rutherford - recommendations appreciated - NIHSS = 7 - q4hr neurochecks - Chest x-ray = "no acute abnormalities displayed" - MR brain = pending - CT head/cervical spine/chest/abdomen/pelvis = "6.5 centimeter acute infarct right occipital lobe. No acute traumatic abnormality involving the chest/abdomen/pelvis." - Head/Neck angiograms deferred given poor renal function - Carotid ultrasound = "Occlusion of the right-sided carotid vasculature. Atherosclerotic changes seen in the left carotid vasculature. Findings do not appear to result in hemodynamically significant degree of stenosis. Normal velocity antegrade flow through the right vertebral artery. Left vertebral artery could not be clearly visualized." - Ordered transthoracic echocardiogram - PT/OT/EVENT PLANNING INTERN evaluation requested - Ordered risk profile: - Hgb A1c = 10.3 % - Lipid Panel = TC 331, LDL 244, HDL 44, TG 223 - TSH = 0.195, Free T4 = 0.86 - Continue aspirin, atorvastatin, clopidogrel, folic acid # Diabetic Ketoacidosis in Type II Diabetes Mellitus # Hypernatremia secondary to Severe Dehydration - Evaluation thus far: - Presenting POCT glucose = 577 - Presenting Potassium = 4.5 - ABG = pH 7.38, PCO2 = 31.2 - Bicarbonate = 19 AGAP = 16 Hgb A1c = 10.3 % - Management plan: - IV fluids and insulin drip per protocol - Anion Gap closed; however, severely hypernatremic and requiring continuous D5W - Once sodium corrects, transition off of IV insulin drip to SQ insulin # KDIGO Stage III Acute Kidney Injury # Microscopic Hematuria - Nephrology consulted and spoke with Dr. Andersen - recommendations appreciated - Creatinine = 4.73 -> 4.10 -> 3.89 -> 3.76 -> 3.40 -> 2.13 -> 2.04 (baseline creatinine unknown) - BUN = 155 -> 157 -> 145 -> 150 - Urinalysis = >50 RBCs, 2+ glucose, trace ketones, 3+ blood, 2+ protein - Renal ultrasound = "no hydronephrosis or suspicious renal mass. Increased cortical echogenicity of both kidneys consistent with underlying medical renal disease" - IV fluids as mentioned above - Monitor creatinine and urine output - Renally dose medications # SIRS Criteria (Hypothermia, Leukocytosis) with Lactic Acidosis suspect due to above # 1/4 Blood Cultures positive for Gram-Positive Cocci in Clusters - suspect Contaminant - Repeat blood cultures - Started empiric vancomycin + ceftriaxone ADDENDUM: MRI brain returned with "8 centimeter acute infarction the right occipital lobe. There is a small amount of hemorrhagic conversion. Small acute left occipital lobe infarct." Spoke to Dr. Rutherford, who recommended discontinuing aspirin + clopidogrel. He recommended continuing VTE dose heparin prophylaxis. He recommended q12hr CT head and to initiate transfer to [facility] in case Neurosurgery support is required. Maicol Bonilla M.D.
--- NOTE | 2022-11-21 20:29 | RAD REPORT ---
EXAM DESCRIPTION: RAD - Abdomen 1 View (KUB) - 11/21/2022 8:04 pm CLINICAL HISTORY: Device placement Dobhoff tube placement FINDINGS: The tip of a Dobhoff tube lies within the gastric fundus 6.5 centimeters from the GE junc tion
[2022-11-21] MEDS: ATORVASTATIN 40 MG TAB PO SCH (20:42)
[2022-11-21] MEDS: VANCOMYCIN 1.5 GM in NA CHLORIDE 0.9% 500 ML IVPB SCH (23:58)
[2022-11-22] MEDS: NA CHLORIDE 0.9% 1,000 ML IV SCH ×2 (00:03→08:15)
--- NOTE | 2022-11-22 00:05 | P.PN ---
Date of Service: 11/22/22 Patient was noted to have small area of hemorrhagic conversion on MRI that was performed today, neurology here recommended discontinuation of aspirin, Plavix and consultation with neurosurgery. [facility] contacted regarding transfer of patient for neurosurgery evaluation, discussed case with Dr. Umanzor suggested that this patient can be safely managed here for the time being as there is no midline shift, acute neurological changes. He was also noted that the area of hemorrhagic progression is in the occipital region which is difficult to surgically decompress. He did recommend allowing his sodium to run high around 150. Repeat CT scan in the morning. IV fluids changed from LR to normal saline. Attending to discuss further with nephrology tomorrow. Continue ICU level of care.
[2022-11-22 04:37] LABS: Hematocrit 43.4 % (39.6-49.0); Lymphocytes % 22.7 % (15.3-44.8); MCV 91.1 fL (80-100); MPV 8.5 fL (7.6-11.3); RBC Red Blood Cell Count 4.77 M/uL (4.33-5.43)
[2022-11-22 04:47] LABS: Albumin 2.3 g/dL (3.4-5.0); Magnesium 2.7 mg/dL (1.6-2.4); Potassium 4.2 mmol/L (3.5-5.1)
[2022-11-22] MEDS: MUPIROCIN 2% OINT 22GM TUBE TOP SCH (08:15)
[2022-11-22 08:33] VITALS: TEMP 97.2
[2022-11-22] MEDS ORDERED: CALCITROL 0.25 MCG CAP PO SCH (09:00)
[2022-11-22] MEDS: CEFTRIAXONE 1,000 MG in NA CHLORIDE 0.9% 50 ML IVPB SCH (09:06)
[2022-11-22] MEDS: FOLIC ACID 1 MG TABLET PO SCH (09:07)
--- NOTE | 2022-11-22 09:08 | RAD REPORT ---
EXAM DESCRIPTION: CT - Head Brain Wo Cont - 11/22/2022 8:52 am CLINICAL HISTORY: CVA COMPARISON: November 21, 2022 MRI TECHNIQUE: Computed axial tomography of the head was obtained. IV contrast was not requested. All CT scans are performed using dose optimization technique as appropriate and may include automated exposure control or mA/KV adjustment according to patient size. FINDINGS: 8 centimeter right occipital lobe infarct unchanged. Small amount of blood seen on the MRI appears stable or diminished. Left occipital lobe infarct has enlarged. Small left basal ganglia infarct. The ventricles are normal in caliber. No extra-axial fluid collection is noted. Fluid within the sinuses/ mastoids is not seen. IMPRESSION: No change in the size of the 8 centimeter right occipital lobe infarct. Small amount of blood seen on MRI appears stable or diminished. Left occipital lobe infarct has enlarged. It probably is moderate in size Exam discussed with Dr. Bonilla
[2022-11-22] MEDS ORDERED: NA CHLORIDE 0.9% 500 ML IV ONE (10:00)
--- NOTE | 2022-11-22 10:20 | RAD REPORT ---
EXAM DESCRIPTION: [facility] Angio11/22/2022 9:49 am CLINICAL HISTORY: cva COMPARISON: None TECHNIQUE: 50 cc Isovue 370 was administered intravenously. 3D MIP reconstruction performed All CT scans are performed using dose optimization technique as appropriate and may include automated exposure control or mA/KV adjustment according to patient size. FINDINGS: Proximal and mid left vertebral artery are unremarkable. At the level of C2 the left verte bral artery is unopacified for most of its distal course. Marked narrowing of the very distal left ve rtebral artery. 3 millimeter area of marked narrowing distal right vertebral artery. Short segment area of marked venkata rowing proximal right vertebral artery. Occlusion of the right common and right internal carotid artery. This was present on the November 20, 2022 ultrasound Mild plaque within the left common and left internal carotid artery. There is approximately 40% steno sis left carotid bulb. IMPRESSION: Occlusion right common and right internal carotid artery Short segment marked narrowing proximal and distal right vertebral artery Little flow within the distal left vertebral artery. This could be secondary to thrombus or dissectio n Exam discussed with Dr Bonilla at 10:08 a.m. November 22, 2022 NASCET criteria used. Mild 0-49% stenosis Moderate 50-69% stenosis Severe 70-99% stenosis
--- NOTE | 2022-11-22 10:23 | RAD REPORT ---
EXAM DESCRIPTION: CTHead angio11/22/2022 9:49 am CLINICAL HISTORY: cva COMPARISON: None TECHNIQUE: CT angiogram of the head was obtained. 3D MIPS reconstruction performed. All CT scans are performed using dose optimization technique as appropriate and may include automated exposure control or mA/KV adjustment according to patient size. FINDINGS: Occlusion distal right internal carotid artery origin left posterior cerebral artery. Marked diminished opacification the left posterior cereb ral artery. P1 segment right posterior cerebral artery normal. Significant diminished opacification remainder of the right posterior cerebral artery Anterior cerebral and middle cerebral arteries without significant abnormality IMPRESSION: Occlusion distal right internal carotid artery origin left posterior cerebral artery. Marked diminished opacification the left posterior cereb ral artery. P1 segment right posterior cerebral artery normal. Significant diminished opacification remainder of the right posterior cerebral artery
--- NOTE | 2022-11-22 10:45 | P.DS ---
Admission Date: 11/19/22 Discharge Date: 11/22/22 Disposition: TRANSFER TO [facility] Discharge Condition: FAIR Reason for Admission: CVA, DKA, ARF Consultations: 1. Neurology 2. Nephrology Hospital Course: DIAGNOSES: # Acute Right Occipital Lobe Ischemic Cerebrovascular Accident with Hemorrhagic Conversion # Acute Left Occipital Lobe Cerebrovascular Accident # Acute Toxic Metabolic Encephalopathy secondary to CVA + DKA (improved) # Right Carotid Artery Occlusion # Diabetic Ketoacidosis in Type II Diabetes Mellitus # Hypernatremia secondary to Severe Dehydration # KDIGO Stage III Acute Kidney Injury # SIRS Criteria (Hypothermia, Leukocytosis) with Lactic Acidosis suspect due to above # / Blood Cultures positive for Gram-Positive Cocci in Clusters - suspect Contaminant # Coronary Artery Disease # Hypertension # Dyslipidemia # Microscopic Hematuria HOSPITAL COURSE: Mr. Abelardo Campo is a 72 year old male with a past medical history significant for coronary artery disease, hypertension, type 2 diabetes mellitus, and dyslipidemia who was admitted to the [facility] on 11/19/2022 for altered mental status. He was admitted to the Medicine service for further evaluation. Prior to presentation, he was last known to be "normal" on 11/15/2022. His family called the police for a wellness check and he was found to be face-down on the floor and altered. Upon presentation, he was found to have an acute right occipital cerebrovascular accident. His CT head/cervical spine/chest/abdomen/pelvis revealed, "6.5 centimeter acute infarct right occipital lobe. No acute traumatic abnormality involving the chest/abdomen/pelvis." Due to his impair renal function, a carotid ultrasound was obtained, which revealed, "occlusion of the right-sided carotid vasculature. Atherosclerotic changes seen in the left carotid vasculature. Findings do not appear to result in hemodynamically significant degree of stenosis. Normal velocity antegrade flow through the right vertebral artery. Left vertebral artery could not be clearly visualized." Neurology was consulted and he was evaluated by Dr. Rutherford. He recommended starting aspirin, clopidogrel, folic acid, and atorvastatin. An MRI brain was requested. In addition to the acute cerebrovascular accident, he was found to have diabetic ketoacidosis and an acute kidney injury. Nephrology was consulted and he was evaluated by Dr. Andersen. With the insulin drip and IV fluids, his diabetic ketoacidosis resolved and his renal function continued to improve. Once weaned off of the insulin drip, the MRI brain was obtained and revealed, "8 centimeter acute infarction the right occipital lobe. There is a small amount of hemorrhagic conversion. Small acute left occipital lobe infarct." These findings were reviewed with Dr. Rutherford. He recommended discontinuing aspirin and clopidogrel, but advised that we continue the VTE prophylactic dose of heparin. He recommended q12hr CT heads and initiating a transfer to [facility] for Neurosurgery support in case the hemorrhagic conversion worsens. A transfer request was initiated and NITZA Bailey discussed case with Dr. Umanzor ([facility] Neurosurgery), who advised that we keep Mr. Campo at our facility. Per prior note, "Dr. Umanzor suggested that this patient can be safely managed here for the time being as there is no midline shift, acute neurological changes. He was also noted that the area of hemorrhagic progression is in the occipital region which is difficult to surgically decompress. He did recommend allowing his sodium to run high around 150. Repeat CT scan in the morning. IV fluids changed from LR to normal saline." This morning, his CT head revealed, "stable right occipital lobe infarct. Small hemorrhagic elements are better visualized by MRI. The left occipital infarct is not well visualized on CT. Findings are overall stable from November 19." This morning on rounds (~08:00 AM), he was noted to have significant worsening in his neurologic exam. His NIHSS scale was now 16. In addition to his previously noted left-sided hemianopia and expressive aphasia, he was noted to have 0/5 strength in his right upper and right lower extremity as well as receptive aphasia and right beating nystagmus. I spoke with Dr. Rutherford, who recommended stat noncontrast CT head and initiation of transfer to [facility] for Neurosurgery. I called transfer center at 08:20 AM and was connected to Dr. Woodruff ([facility] Neurosurgery). He recommended that I wait until the CT head report returns and to call back with the results. The repeat CT head revealed, "no change in the size of the 8 centimeter right occipital lobe infarct. Small amount of blood seen on MRI appears stable or diminished. Left occipital lobe infarct has enlarged. It probably is moderate in size." I spoke with Dr. Pfeiffer (Radiology) at 09:00 AM who informed me of the results prior to the offical report being released. I called transfer center back at 09:02 AM and was re- connected with Dr. Woodruff, who accepted him for admission to the [facility] Neurologic Intensive Care Unit. At 09:18 AM, I received a call from the Transfer Center and was connected with Dr. Woodruff. He stated that prior to being transferred, he would like me to obtain a CT head/neck angiogram and to call him back with the results prior to transfer. A STAT CT head/neck angiogram were ordered. The CT head angiogram revealed, "occlusion distal right internal carotid artery. origin left posterior cerebral artery. Marked diminished opacification the left posterior cerebral artery. P1 segment right posterior cerebral artery normal. Significant diminished opacification remainder of the right posterior cerebral artery." The CT neck angiogram revealed, "occlusion right common and right internal carotid artery. Short segment marked narrowing proximal and distal right vertebral artery. Little flow within the distal left vertebral artery. This could be secondary to thrombus or dissection." I spoke with Dr. Pfeiffer (Radiology) at 10:08 AM who informed me of the results prior to the official report being signed. At 10:13 AM, I was connected to Dr. Woodruff and informed him of the results that were given to me prior to the report being released. He has accepted him for transfer to the [facility] Neurologic ICU. At 11:21 AM, I spoke with Dr. Woodruff and read him the official radiology report. On 11/22/2022, he was seen on morning rounds and deemed medically stable for transfer. I have updated the family members and were given the opportunity to ask questions and reported no further questions. Furthermore, all questions were answered to the best of my ability. A copy of this discharge summary will be sent to the above providers to facilitate continuity of care. Today, I personally spent 60 minutes on his case, of which greater than 50% of the time was spent in patient education, counseling, and coordination of care as described above. NIH Stroke Scale 1a. Level of consciousness: 0 - Alert; keenly responsive 1b. LOC questions: 2 - 0 questions rights 1c. LOC commands: 0 - Performs both tasks 2. Best Gaze: 0 - Normal 3. Visual: 2 - Complete left hemianopia 4. Facial Palsy: 0 - Normal symmetry 5a. Motor left arm: 0 - No drift for 10 seconds 5b. Motor right arm: 4 - No movement 6a. Motor left le - No drift for 5 seconds 6b. Motor right le - No movement 7. Limb ataxia: 0 - No ataxia 8. Sensory: 0 - Unable to assess 9. Best Language: 2 - Severe aphasia: fragmentary expression, inference needed 10. Dysarthria: 2 - Severe dysarthria: unintelligible slurring 11. Extinction and Inattention: 0 - No abnormality 12. Distal motor function: 0 - No abnormality Total Score: 16 Vital Signs/Physical Exam: Temp Pulse Resp BP Pulse Ox 97.2 F 65 18 119/55 L 98 11/22/22 08:00 11/22/22 08:00 11/22/22 08:00 11/22/22 08:00 11/22/22 08:00 General: Alert, In no apparent distress, Oriented x3 HEENT: Atraumatic, Other (mucous membranes dry), Sclerae nonicteric Neck: Supple, JVD not distended Respiratory: Clear to auscultation bilaterally, Normal air movement Cardiovascular: No edema, Regular rate/rhythm, Normal S1 S2, No gallops, No rubs, No murmurs Gastrointestinal: Normal bowel sounds, Soft and benign, Non-distended, No tenderness, No rebound, No guarding Musculoskeletal: No clubbing Integumentary: No rashes Neurological: Other (Alert with right-beating nystagmus), Abnormal speech (expressive aphasia with dysarthria), Abnormal strength (0/5 strength in RUE/RLE. 5/5 strength in LLE) Laboratory Data at Discharge: WBC 8.90 K/uL (4.3-10.9) 11/22/22 04:13 Hgb 14.6 g/dL (13.6-17.9) D 11/22/22 04:13 Hct 43.4 % (39.6-49.0) 11/22/22 04:13 Plt Count 169 K/uL (152-406) 11/22/22 04:13 PT 11.7 SECONDS (9.5-12.5) 11/19/22 15:40 INR 1.06 11/19/22 15:40 APTT 29.6 SECONDS (24.3-36.9) 11/19/22 15:40 Sodium 146 mmol/L (136-145) H 11/22/22 04:13 Potassium 4.2 mmol/L (3.5-5.1) D 11/22/22 04:13 BUN 56 mg/dL (7-18) H 11/22/22 04:13 Creatinine 1.63 mg/dL (0.70-1.30) H 11/22/22 04:13 Glucose 200 mg/dL (74-106) H 11/22/22 04:13 Uric Acid 12.5 mg/dL (3.5-7.2) H 11/21/22 04:56 Phosphorus 2.0 mg/dL (2.5-4.9) L 11/22/22 04:13 Magnesium 2.7 mg/dL (1.6-2.4) H 11/22/22 04:13 Total Bilirubin 0.9 mg/dL (0.2-1.0) 11/19/22 15:40 AST 22 U/L (15-37) 11/19/22 15:40 ALT 36 U/L (16-61) 11/19/22 15:40 Alkaline Phosphatase 102 U/L (45-117) 11/19/22 15:40 Triglycerides 223 mg/dL (<150) H 11/20/22 04:50 Cholesterol 331 mg/dL (<200) H 11/20/22 04:50 HDL Cholesterol 42 mg/dL (40-60) 11/20/22 04:50 Cholesterol/HDL Ratio 7.88 11/20/22 04:50 Home Medications: Atorvastatin Calcium [Lipitor] 40 mg PO BEDTIME tab 11/22/22 Mupirocin Oint [Bactroban 2% Ointment*] 1 appl TOP BID tube 11/22/22 Physician Discharge Instructions: - Continue care in Neurologic ICU at [facility] Diet: NPO Activity: Fall precautions Followup: NONE,NONE [Primary Care Provider] - Time spent managing pt's care (in minutes): 60
[2022-11-22 11:07] VITALS: BP 115/54
--- NOTE | 2022-11-24 11:00 | RAD REPORT ---
EXAM DESCRIPTION: CT - Head Brain Wo Cont - 11/22/2022 6:43 am COMPARISON: CT head November 19, 2022, MRI brain November 21, 2022 CLINICAL HISTORY: HS MAIN eval hemorrhage TECHNIQUE: Axial images were obtained from skull base to vertex without intravenous contrast. Imag es viewed on bone and brain windows. Multiplanar reformats were performed. Automated exposure contr ol was utilized on this examination as a dose lowering technique. FINDINGS: Brain parenchyma, ventricles, dura, meninges, and extra-axial spaces: Developing right occ ipital infarct. Punctate calcification of the left occipital lobe. Vascular structures: No hyperdense arteries or veins. Calvarium, mastoid air cells, paranasal sinuses and orbits: The calvarium is normal. The mastoid air cells are clear. Visualized paranasal sinuses are unremarkable. Orbital structures are unremarkable. IMPRESSION: Stable right occipital lobe infarct. Small hemorrhagic elements are better visualized by MRI. The left occipital infarct is not well visualized on CT. Findings are overall stable from Febru fide 1. Electronically signed by: Pancho Becker MD 11/22/2022 6:17 AM STUDENT SUPPORT ADVISOR Due to temporary technical issues with the PACS/Fluency reporting system, reports are being signed by the in house radiologists without review as a courtesy to insure prompt reporting. The interpreting radiologist is fully responsible for the content of the report.
== END 2022-11-22 11:10 | disposition short-term general hospital (02) | DRG 64 ==
LOC: ER 14:48 → ERHOLD 18:05 → 3RD-ICU 11-20 00:32
PROVIDERS: ADMIT Internal Medicine; ATTEND Internal Medicine
DX: I63.9 Cerebral infarction, unspecified (principal); E11.10 Type 2 diabetes mellitus with ketoacidosis without coma; G92.8 Other toxic encephalopathy; N17.9 Acute kidney failure, unspecified; R65.10 Systemic inflammatory response syndrome (SIRS) of non-infectious origin without acute organ dysfunction; E87.0 Hyperosmolality and hypernatremia; N25.81 Secondary hyperparathyroidism of renal origin; W18.30XA Fall on same level, unspecified, initial encounter; Y93.9 Activity, unspecified; Y92.099 Unspecified place in other non-institutional residence as the place of occurrence of the external cause; Z60.2 Problems related to living alone; R68.0 Hypothermia, not associated with low environmental temperature; I25.10 Atherosclerotic heart disease of native coronary artery without angina pectoris; I25.2 Old myocardial infarction; R29.713 NIHSS score 13; Z79.4 Long term (current) use of insulin; E78.5 Hyperlipidemia, unspecified; Z20.822 Contact with and (suspected) exposure to COVID-19; R41.82 Altered mental status, unspecified; R47.01 Aphasia; I65.21 Occlusion and stenosis of right carotid artery; E86.0 Dehydration; R31.29 Other microscopic hematuria; E11.40 Type 2 diabetes mellitus with diabetic neuropathy, unspecified; E11.22 Type 2 diabetes mellitus with diabetic chronic kidney disease; I12.9 Hypertensive chronic kidney disease with stage 1 through stage 4 chronic kidney disease, or unspecified chronic kidney disease; E87.5 Hyperkalemia; E87.6 Hypokalemia; Z74.01 Bed confinement status; N18.30 Chronic kidney disease, stage 3 unspecified; R13.10 Dysphagia, unspecified
CPT/HCPCS: 0240U; 36415; 51702; 70450; 70496; 70498; 70551; 71045; 71250; 72125; 74018; 76770; 80048; 80053; 80061; 80069; 80076; 80202; 81003; 81015; 82550; 82570; 82805; 82947; 83036; 83520; 83605; 83735; 83880; 83970; 84100; 84132; 84156; 84300; 84439; 84443; 84484; 84550; 85025; 85610; 85730; 86021; 86038; 86160; 86225; 86430; 87040; 87205; 92523; 92526; 92610; 93005; 93306; 93880; 97110; 97112; 97161; 97165; 97530; 99285; J1644; J1815; J3370; J3480; J7030; J7040; J7050; J7120; J7799